=== PATIENT | male | born 1995 | race Caucasian/White ===

== ENCOUNTER 2023-08-05 06:24 | Day surgery (SDC) | payer OTHER ==
[2023-08-05] MEDS ORDERED: ceFAZolin 2 GM VIAL ONE (06:27)
[2023-08-05] MEDS: LACTATED RINGERS 1,000 ML IV ONE ×2 (06:47→10:28)
[2023-08-05] MEDS: ACETAMINOPHEN 500 MG TABLET PO ONE (06:58)
[2023-08-05] MEDS ORDERED: LIDOCAINE 1%-EPI 1:100000 20 ML MDV ONE ×2 (07:04→08:14)
[2023-08-05] MEDS ORDERED: BUPIVACAINE 0.5% PF 10 ML VIAL ONE ×2 (07:04→08:14)
[2023-08-05] MEDS ORDERED: MIDAZOLAM 2 MG/2 ML VIAL ONE (07:18)
[2023-08-05] MEDS ORDERED: fentaNYL 100 MCG/2 ML VIAL ONE ×2 (07:18→09:50)
[2023-08-05] MEDS ORDERED: PROPOFOL 200 MG/20 ML VIAL IVP ONE ×3 (07:18→09:43)
[2023-08-05] MEDS ORDERED: LIDOCAINE-PF 2% 10 ML AMP SUBQ ONE (07:18)
--- NOTE | 2023-08-05 07:18 | ANESTHESIA ---
Pre-Anesthesia VS, & Labs - Diagnosis B inguinal hernias - Procedure B open inguinal hernia repair Vital Signs: Temp Pulse Resp BP Pulse Ox O2 Flow Rate 36.4 C L 83 16 138/83 H 96 08/05/23 06:49 08/05/23 06:49 08/05/23 06:49 08/05/23 06:49 08/05/23 06:49 Height: 5 ft 6 in Weight (kg): 91.8 kg Body Mass Index: 32.6 BMI Classification: Obese - NPO >8 hours - Lab Results Lab results reviewed: Yes Home Medications and Allergies Home Medications: Ambulatory Orders No Known Home Medications 07/26/23 No Known Home Medications 07/26/23 Allergies/Adverse Reactions: Allergies Allergy/AdvReac Type Severity Reaction Status Date / Time No Known Drug Allergies Allergy Verified 07/26/23 12:25 Anes History & Medical History - Anesthetic History Anesthesia Complications: reports: No previous complications Family history of Anesthesia Complications: Denies Family history of Malignant Hyperthermia: Denies - Medical History Cardiovascular: reports: None Pulmonary: reports: None Gastrointestinal: reports: None Urinary: reports: None Musculoskeletal: reports: None Endocrine/Autoimmune: reports: None Skin: reports: None Exam General: Alert, Oriented x3, Cooperative Dental: WNL Neck Mobility: Normal Mallampati classification: II Thyromental Distance: 4-6 cm Respiratory: Lungs clear, Normal breath sounds, No respiratory distress, Other (current sniffling, pt states its from traveling by plane in last 24 hours) Cardiovascular: Regular rate Neurological: Normal speech Mental/Cognitive Status: Alert/Oriented X3, Normal for patient Cognitive Status: Within normal limits Plan Anesthesia Type: General Consent for Procedure(s) Verified and Reviewed: Yes Code Status: Attempt Resuscitation ASA classification: 2-Mild systemic disease Is this case an emergency?: No
[2023-08-05] MEDS ORDERED: ATROPINE ABBOJECT 1 MG/10 ML SYRINGE IVP PRN (07:20)
[2023-08-05] MEDS ORDERED: METOCLOPRAMIDE 10 MG/2 ML VIAL IVP PRN (07:20)
[2023-08-05] MEDS ORDERED: ONDANSETRON 4 MG/2 ML VIAL IVP PRN ×2 (07:20→10:21)
[2023-08-05] MEDS ORDERED: fentaNYL 100 MCG/2 ML VIAL IVP PRN (07:20)
[2023-08-05] MEDS ORDERED: MORPHINE 2 MG/ML CARPUJECT IVP PRN (07:20)
[2023-08-05] MEDS ORDERED: HYDROmorphone 0.5 MG/0.5 ML SYRINGE IVP PRN ×2 (07:20→10:31)
[2023-08-05] MEDS ORDERED: NALOXONE 0.4 MG/ML VIAL IVP PRN (07:20)
[2023-08-05] MEDS ORDERED: ePHEDrine 50 MG/ML VIAL IVP PRN (07:20)
[2023-08-05] MEDS ORDERED: LACTATED RINGERS 1,000 ML IV SCH (08:00)
[2023-08-05] MEDS ORDERED: ONDANSETRON 4 MG/2 ML VIAL ONE (08:02)
[2023-08-05] MEDS ORDERED: KETOROLAC 30 MG/ML VIAL ONE (08:02)
[2023-08-05] MEDS ORDERED: DEXAMETHASONE 4 MG/ML VIAL ONE (08:02)
[2023-08-05] MEDS ORDERED: KETAMINE 200 MG/20 ML VIAL ONE ×2 (08:10→08:12)
[2023-08-05] MEDS: LIDOCAINE 1%-EPI 1:100000 20 ML MDV SUBQ ONE (08:21)
[2023-08-05] MEDS: BUPIVACAINE 0.5% PF 10 ML VIAL SUBQ ONE (08:22)
[2023-08-05] MEDS ORDERED: ROCURONIUM 50 MG/5 ML VIAL ONE (09:37)
[2023-08-05] MEDS ORDERED: SUGAMMADEX 200 MG/2 ML VIAL IVP ONE (09:57)
[2023-08-05] MEDS ORDERED: ACETAMINOPHEN 325 MG TABLET PO PRN (10:31)
--- NOTE | 2023-08-05 10:36 | OPERATIVE REPORT ---
Operative Report - General Procedure Date: 08/05/23 Planned Procedure: bilateral open inguinal hernia repair with mesh Pre-Op Diagnosis: bilateral inguinal hernia Procedure Performed: open bilateral inguinal hernia repair with mesh Post Op Diagnosis: bilateral inguinal hernia - Procedure Note Primary Surgeon: Dr. Alexus Garcia Secondary Surgeon: none Anesthesia Provider: Alin Sorenson CRNA Anesthesia Technique: General ET tube, General LMA, Local Estimated Blood Loss (mL): 15 Indications: The patient presented with bilateral groin pain, left worse than right that has been present for several years. On CT scan, he has bilateral inguinal hernias. He was seen and evaluated in the clinic where we discussed the risks, benefits, and alternatives of open bilateral inguinal hernia repair with mesh. Risks include bleeding, infection, damage to surrounding structures, chronic groin pain, recurrence of the hernia, low risk for infection of the mesh requiring removal, and the need for further surgeries or procedures. The patient voiced understanding, his questions were answered, and he wished to proceed with surgery. A consent was signed by the patient prior to surgery. Findings: 1. Right direct inguinal hernia 2. Small left indirect inguinal hernia 3. PHSE mesh used bilaterally 4. Both testicles and scrotum at the end of the case. Complications: None - Other Other Information/Narrative: The patient was brought to the operative suite and placed in the supine position. General endotracheal anesthesia was induced. Preop antibiotics were given and ERAS protocol was followed. Patient was prepped and draped in the usual sterile fashion. A preop surgical timeout was performed. Next, local was used to perform a right ilioinguinal nerve block. The incision was planned overlying the area of the hernia following the skin crease. An incision was made with a 10 blade scalpel and was carried down through the skin and subcutaneous tissues to the level of the external abdominal oblique using blunt and sharp dissection with electrocautery. Excellent hemostasis was maintained. Local was injected just deep to the external abdominal oblique and the external abdominal oblique muscle was opened using a 15 blade scalpel following the muscle fibers. The incision was enlarged using Metzenbaum scissors through the external inguinal ring and slightly laterally. Next, the cord structures were isolated from the surrounding tissues and a [place] drain was passed around them. The cord structures were carefully inspected, and no indirect inguinal hernia was identified. A small direct inguinal hernia was identified and reduced. The preperitoneal space was developed. A PHSE prolene hernia system was brought onto the field and placed in the preperitoneal space; the internal component was open and lay flat. Next, the external component was opened. It was tacked medially and inferiorly to the pubic tubercle using a 2-0 PDS suture. It was also tacked to the shelving edge inferiorly and laterally and to the shelving edge superiorly to allow it to lie flat. A slit was made to accommodate the cord structures and the external inguinal ring was re-created. Care was taken to ensure that there was adequate space to accommodate the cord structures and swelling postoperatively. The corners of the mesh were reapproximated to re- create this ring using 2-0 PDS. Additional local was injected into the tissues in the areas where the sutures were placed. Next, the external abdominal oblique muscle was reapproximated with 2-0 Vicryl in a running fashion. Then, Brynn's fascia was reapproximated with 3-0 Vicryl in an interrupted fashion. The subcutaneous tissues were irrigated with warm normal saline. The deep dermal tissues were reapproximated with 3-0 Vicryl in an interrupted fashion. Finally, 4-0 Monocryl was used to reapproximate the skin edges in a running subcuticular fashion. Next, attention was turned to the left groin local was used to perform an ilioinguinal nerve block. The incision was planned overlying the area of the hernia following the skin crease. An incision was made with a 10 blade scalpel and carried down through the skin and subcutaneous tissues to the level of the external abdominal oblique using blunt and sharp dissection with electrocautery. Excellent hemostasis was maintained. Local was injected just deep to the external abdominal oblique and the external abdominal oblique muscle was opened using a 15 blade scalpel following the muscle fibers. The incision was enlarged using Metzenbaum scissors through the external inguinal ring and slightly laterally. Next the cord structures were isolated from the surrounding tissues and a [place] drain was passed around them. The hernia sac was identified and isolated from the surrounding tissues taking great care to avoid any cord structures. The patient was noted to have a small indirect inguinal hernia. Once the sac was completely isolated from the thao rrounding tissues it was reduced and the preperitoneal space was developed. A PHSE Prolene hernia system was brought onto the field and placed in the preperitoneal space; the internal component was open and lay flat. Next, the external component was opened. It was tacked medially and inferiorly to the pubic tubercle using a 2-0 PDS suture. It was also tacked to the shelving edge inferiorly and laterally and to the shelving edge superiorly to allow it to lie flat. A slit was made to accommodate the cord structures and the external inguinal ring was re-created. Care was taken to ensure that there was adequate space to accommodate the cord structures and swelling postoperatively. The corners of the mesh were reapproximated to re-create this ring using 2-0 PDS. Additional local was injected into the tissues in the areas where the sutures were placed. Next, the external abdominal oblique muscle was reapproximated with 2-0 Vicryl in a running fashion. Then, Brynn's fascia was reapproximated with 3-0 Vicryl in an interrupted fashion. The subcutaneous tissues were irrigated with warm normal saline. The deep dermal tissues were reapproximated with 3-0 Vicryl in an interrupted fashion. Finally, 4-0 Monocryl was used to reapproximate the skin edges in a running subcuticular fashion. A sterile dressing of skin glue was placed over both incisions. The patient tolerated the procedure well.Notably, initially the patient was ventilated using an LMA, this was leaking during the case, and was transition to an endotracheal tube for anesthesia. Both testicles were noted to be within the scrotum at the end of the case. There were no complications.
[2023-08-05] MEDS ORDERED: oxyCODONE 5 MG TABLET ONE (11:48)
[2023-08-05] MEDS: oxyCODONE 5 MG TABLET PO PRN (11:50)
[2023-08-05 11:53] VITALS: BP 138/81; O2SAT 95
--- NOTE | 2023-08-05 13:01 | ANESTHESIA POST OP EVALUATION ---
Anesthesia Post Eval - Post Anesthesia Eval Vitals: Last Vital Signs Temp 36.4 C L 08/05/23 11:50 Pulse 94 08/05/23 11:50 Resp 16 08/05/23 11:50 BP 138/81 H 08/05/23 11:50 Pulse Ox 95 08/05/23 11:50 O2 Flow Rate CV Function Including HR & BP: Stable Pain Control: Satisfactory Nausea & Vomiting: Negative Mental Status: Baseline Respiratory Status: Airway Patent Hydration Status: Satisfactory Anesthesia Complications: None
== END 2023-08-05 06:25 | disposition home or self-care (01) ==
LOC: SDS 06:24
PROVIDERS: ATTEND Surgery
DX: K40.20 Bilateral inguinal hernia, without obstruction or gangrene, not specified as recurrent (principal); E66.9 Obesity, unspecified; Z68.32 Body mass index [BMI] 32.0-32.9, adult
CPT/HCPCS: 49505; A9270; C1713; J3490; J7120